=== PATIENT | female | born 1965 | race Caucasian/White ===

== ENCOUNTER 2016-07-26 07:15 | Emergency (ER) | payer OTHER ==
[2016-07-26] MEDS ORDERED: predniSONE 20 MG TAB PO ONE (07:42)
[2016-07-26] MEDS ORDERED: IPRATROPIUM/ALBUTEROL 3 ML DEYVIAL IH ONE ×2 (07:42→08:08)
[2016-07-26] MEDS ORDERED: IPRATROPIUM/ALBUTEROL 3 ML DEYVIAL ONE (07:42)
[2016-07-26] MEDS ORDERED: predniSONE 20 MG TAB ONE (07:43)
[2016-07-26] MEDS ORDERED: IBUPROFEN 600 MG TAB PO ONE (07:48)
[2016-07-26 07:56] VITALS: BP 125/102; RESP 20; TEMP 101.4
--- NOTE | 2016-07-26 08:06 | UCPHY ---
H & P Time Seen by Provider: 07/26/16 07:29 Patient Type: New HPI/ROS: This patient presents with a chief complaint cough, wheezing, subjective fever myalgias headache all of which began 2 days ago. She is a known asthmatic on inhaled steroids and has a nebulizer at home. 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 She did not receive a flu shot. REVIEW OF SYSTEMS: Constitutional: Fever, malaise, Eyes: No complaints ENT: Nasal congestion, no sore throat no ear pain Respiratory: Cough, wheezing, shortness of breath on exertion Cardiac: Chest tightness Gastrointestinal: Denies symptoms except anorexia Genitourinary: Not addressed Musculoskeletal: Generalized myalgias Skin: No rash Neurological: Headache Smoking Status: Never smoked Physical Exam: GENERAL: Well-appearing, well-nourished, this patient appears to be acutely ill but not toxic. HEAD: Atraumatic, normocephalic. EYES: Pupils equal round and reactive to light, sclera anicteric, conjunctiva are normal. ENT: TMs normal, nares patent, oropharynx clear without exudates. Moist mucous membranes. NECK: Normal range of motion, supple without lymphadenopathy or JVD. No tenderness LUNGS: There is diffuse wheezing and the patient tends to cough on expiration. The expiratory phase is prolonged. HEART: Regular rate and rhythm EXTREMITIES: Normal range of motion, NEUROLOGICAL: Cranial nerves II through XII grossly intact. Normal speech, normal gait. PSYCH: Normal mood, normal affect. SKIN: Warm, dry, normal turgor, no visible rashes or lesions. Constitutional: Initial Vital Signs Temperature (C) 38.6 C H 07/26/16 07:40 Heart Rate 128 H 07/26/16 07:40 Respiratory Rate 20 07/26/16 07:40 Blood Pressure 125/102 H 07/26/16 07:40 O2 Sat (%) 92 07/26/16 07:40 O2 Delivery Mode Room Air Allergies/Adverse Reactions: ENVIRONMENTAL Allergy (Intermediate, Uncoded 07/26/16 07:45) ASTHMA Home Medications: Medication Instructions Recorded Bimatoprost 0.01% [Lumigan 0.01% 1 drops EACHEYE HS 09/02/15 (*)] QUEtiapine FUMARATE [Seroquel 25 25 mg PO HS 09/02/15 mg (*)] Albuterol [Ventolin Hfa Inhaler] 2 puffs IH Q6 PRN 09/21/15 Oseltamivir Phosphate [Tamiflu 75 75 mg PO BID #10 cap 07/26/16 mg (RX)] Qvar 07/26/16 predniSONE 20 mg PO DAILY #12 tablet 07/26/16 Medical Decision Making ED Course/Re-evaluation: The patient was given an initial DuoNeb with 60 mg of prednisone. Re- examination revealed few or wheezes and free air air movement. At 8:15 a.m. she was given an additional DuoNeb. After the 2nd treatment she was feeling significantly improved in her oxygen. Saturations remained in good range. Re- examination revealed if your wheezes on again more air movement. - Data Points Laboratory Results: 07/26/16 07:30 Influenza Typ A,B (DFA) POSITIVE FOR FLU A H (NEGATIVE) Medications Given: Discontinued Medications Albuterol/Ipratropium (Duoneb) 3 ml IH EDNOW ONE Stop: 07/26/16 07:43 Last Admin: 07/26/16 07:50 Dose: 3 ml Albuterol/Ipratropium (Duoneb) 3 ml IH EDNOW ONE Stop: 07/26/16 08:09 Last Admin: 07/26/16 08:10 Dose: 3 ml Ibuprofen (Motrin) 600 mg PO EDNOW ONE Stop: 07/26/16 07:49 Last Admin: 07/26/16 07:58 Dose: 600 mg Prednisone (Prednisone) 60 mg PO EDNOW ONE Stop: 07/26/16 07:43 Last Admin: 07/26/16 07:58 Dose: 60 mg Departure - Departure Disposition: Home, Routine, Self-Care Clinical Impression: Influenza A Condition: Good Instructions: Influenza (ED), Oseltamivir (By mouth) Additional Instructions: Keep herself well hydrated but do not force herself to eat. Rest. Use your nebulizer or your inhaler at least 4 times daily but it is safe to use it every 2 hours if necessary. Influenza generally lasts 1 week but if your ill for longer than 9 days you should be re-evaluated. If you feel that your symptoms are worsening particularly your breathing problems you should be seen right away. Adult Pain & Fever Control: We recommend Acetaminophen (Tylenol) and Ibuprofen (Motrin, Advil) for pain and fever control. When fever is high or pain severe, both drugs can be used at the same time, but at different intervals. Please note the time differences. Your dose is: Acetaminophen [650]mg every 4 to 6 hours ibuprofen [600]mg every [6] hours with food OR naproxen Sodium (Aleve) [440]mg every 12 hours. Note: do not take Acetaminophen with Hydrocodone (Vicodin, Lortab) or Oxycodone (Percocet). These medications also contain Acetaminophen. No more than 3000 mg of Acetaminophen should be taken in 24 hours (for an adult) . The maximal dose of ibuprofen that it is safe in a 24-hour period is 2400 mg. You may take 400 mg every 4 hours, 600 mg every 6 hours or 800 mg every 8 hours safely. Referrals: Osmel Vaz MD [Primary Care Provider] - As per Instructions Prescriptions: Oseltamivir Phosphate [Tamiflu 75 mg (RX)] 75 mg PO BID #10 cap predniSONE 20 mg PO DAILY #12 tablet - PQRS PQRS Measurement: Not applicable
[2016-07-26 08:10] VITALS: PULSE 110; O2SAT 95
== END 2016-07-26 08:26 | disposition home or self-care (01) ==
LOC: CED 07:15
DX: J09.X2 Influenza due to identified novel influenza A virus with other respiratory manifestations (principal)
CPT/HCPCS: 87400-PO; G0463-PO

== ENCOUNTER 2016-07-30 13:55 | Emergency (ER) | payer OTHER ==
[2016-07-30 14:07] VITALS: BP 166/99; PULSE 93; RESP 16; TEMP 98.4; O2SAT 97
[2016-07-30] MEDS ORDERED: IPRATROPIUM/ALBUTEROL 3 ML DEYVIAL IH ONE (14:32)
[2016-07-30] MEDS ORDERED: IPRATROPIUM/ALBUTEROL 3 ML DEYVIAL ONE (14:33)
[2016-07-30] MEDS ORDERED: ALBUTEROL 3 ML DEYVIAL IH ONE (15:11)
--- NOTE | 2016-07-30 15:11 | DX ---
Chest 2 view, PA and lateral. History: Cough and difficulty breathing. Comparison: March 2014. Findings: Heart size is within normal limits. Pulmonary vascularity is normal. The lungs are clear of acute consolidation. Mild peribronchial cuffing is seen bilaterally. No evidence for pleural effusio n. Minimal degenerative change thoracic spine. Impression: Mild bronchitis. No other findings for acute cardiopulmonary abnormality.
--- NOTE | 2016-07-30 15:17 | UCPHY ---
H & P Time Seen by Provider: 07/30/16 14:58 Patient Type: Established HPI/ROS: This patient with a long history of asthma presents with ongoing dyspnea and wheezing despite using her albuterol nebs at home. She developed symptoms of cough and fevers 6 days ago. She presented to [facility] 4 days ago was diagnosed with influenza a by a positive swab at that time. She was tachycardic to the 120s not hypoxic to 92% on that visit. She clinically improved with prednisone, nebs was also started on Tamiflu. She reports compliance with prednisone 60 mg a day and Tamiflu. However, she has been using her albuterol nebs q.4 hours at home and still has persistent dyspnea that she ranks as moderate to mild. She clarifies that dyspnea is moderate prior to nebs and mild after. Compared to previous asthma exacerbations she is not clearing as quickly as usual on prednisone and that concerned her, prompting her visit. ROS: Constitutional: No high fevers in the last couple days. No chills. No other complaints. HEENT: She has no complaints pulmonary: No pleuritic pain. No chest pain. Cardiovascular: No complaints. 7 point ROS is otherwise negative. Smoking Status: Never smoked Physical Exam: Physical Exam Vital signs are normal with exception of mild hypertension General: No acute distress HEENT: Oropharynx: Clear with no stridor. No dysphonia. Eyes: Pupils equal and react to light. Extraocular motions are intact. Lungs: Patient has moderate rhonchi bilaterally and mild to moderate expiratory wheeze bilaterally after a DuoNeb that she received on arrival. No rales are appreciated. No respiratory distress. Cardiac: Regular rate and rhythm with no murmur gallop or rub Skin: No rash or pallor. Neuro: Alert and oriented x3 with no sensorimotor deficits. Initial differential diagnosis: Persistent asthma exacerbation, pneumonia Constitutional: Initial Vital Signs Temperature (C) 36.9 C 07/30/16 14:03 Heart Rate 93 07/30/16 14:03 Respiratory Rate 16 07/30/16 14:03 Blood Pressure 166/99 H 07/30/16 14:03 O2 Sat (%) 97 07/30/16 14:03 O2 Delivery Mode Room Air Allergies/Adverse Reactions: ENVIRONMENTAL Allergy (Intermediate, Uncoded 07/30/16 14:07) ASTHMA Home Medications: Medication Instructions Recorded Bimatoprost 0.01% [Lumigan 0.01% 1 drops EACHEYE HS 09/02/15 (*)] QUEtiapine FUMARATE [Seroquel 25 25 mg PO HS 09/02/15 mg (*)] Albuterol [Ventolin Hfa Inhaler] 2 puffs IH Q6 PRN 09/21/15 Oseltamivir Phosphate [Tamiflu 75 75 mg PO BID #10 cap 07/26/16 mg (RX)] Qvar 07/26/16 predniSONE 20 mg PO DAILY #12 tablet 07/26/16 Albuterol Hfa Anes Only [Proair 2 puffs IH Q4 PRN #1 mdi 07/30/16 Hfa Icu (*)] Albuterol [Proventil Neb] 3 ml IH Q4 #25 deyvial 07/30/16 Beclomethasone Qvar 80 [Qvar 80 2 puffs IH BIDI #0 mdi 07/30/16 (*)] predniSONE 60 mg PO DAILY #15 tab 07/30/16 MDM/Departure - MDM Diagnostics: Chest x-ray: Prominent bronchial findings bilaterally consistent with airway disease/bronchitis. No focal infiltrates are appreciated. No pneumothorax. Medications Given: Discontinued Medications Albuterol (Proventil Neb) 3 ml IH EDNOW ONE Stop: 07/30/16 15:12 Last Admin: 07/30/16 15:32 Dose: 3 ml Albuterol/Ipratropium (Duoneb) 3 ml IH EDNOW ONE Stop: 07/30/16 14:33 Last Admin: 07/30/16 14:35 Dose: 3 ml ED Course/Re-evaluation: DuoNeb Peak flow of 320 after the initial DuoNeb. Albuterol neb Discussion: Despite the patient's feeling of chest congestion dyspnea she actually has decent peak flow. I counseled her regarding mucolytic, humidifier to help break up the mucus as well as CPT. We will extend her prednisone course and provided further Qvar and home nebs for her. After workup, we ruled out pneumonia with the negative chest x-ray. - Depart Disposition: Home, Routine, Self-Care Clinical Impression: Asthma exacerbation Condition: Good Instructions: Asthma (ED) Additional Instructions: Dx: Asthma Exacerbation Plan: He use a humidifier Also poultry picking machine tender [id number] guaifenesin as a mucolytic Chest percussive therapy 5 minutes to the chest by a family member prior to your nebulizer to help mobilize mucus. Continue prednisone as prescribed Albuterol inhalers or puffers as needed for cough, wheeze or shortness of breath Monitor peak flow as instructed. Call your primary physician to arrange follow-up appointment for this week Good the emergency department for any significant worsening despite treatment plan. Prescriptions: Albuterol Hfa Anes Only [Proair Hfa Icu (*)] 2 puffs IH Q4 PRN #1 mdi PRN Reason: Wheezing Albuterol [Proventil Neb] 3 ml IH Q4 #25 deyvial Beclomethasone Qvar 80 [Qvar 80 (*)] 2 puffs IH BIDI #0 mdi predniSONE 60 mg PO DAILY #15 tab Referrals: Osmel Vaz MD [Primary Care Provider] - As per Instructions - PQRS PQRS Measurement: NA
== END 2016-07-30 16:01 | disposition home or self-care (01) ==
LOC: CED 13:55
DX: J45.909 Unspecified asthma, uncomplicated (principal); R05 Cough
CPT/HCPCS: 71020-PO; G0463-PO

== ENCOUNTER → 2016-08-07 | Outpatient (CLI) | payer OTHER ==
--- NOTE | 2016-08-07 09:42 | MA ---
Screening Digital Mammogram With iCAD Indication: Routine screening. Benign left breast stereotactic biopsy in May 2014. Technique: Standard cephalocaudal and mediolateral oblique projections are obtained. This examinati on is processed by the iCAD computer-aided detection system. Comparison: May 2015, May 2014, March 2013, and September 2010. Breast density: Type B. Findings: CAD was reviewed. No suspicious microcalcifications, mass, or architectural distortion. Impression: Negative mammogram BI-RADS: 1 - Negative Recommendation: Routine screening is recommended in one year. [facility] will send a result letter to the patient. Negative mammography should not preclude additional workup of a clinically suspicious finding. The patient's information is entered into a reminder system with a target due date for her next mammo gram.
== END ==
LOC: FIMAGING 07:51
DX: Z12.31 Encounter for screening mammogram for malignant neoplasm of breast (principal)
CPT/HCPCS: G0202

== ENCOUNTER → 2017-06-26 | Outpatient (CLI) | payer OTHER | LOC: CIMAGING 12:14 | PROVIDERS: ATTEND Internal Medicine | DX: J45.909 Unspecified asthma, uncomplicated (principal) | CPT/HCPCS: 71020-PO ==

== ENCOUNTER → 2017-08-20 | Outpatient (CLI) | payer OTHER | LOC: FIMAGING 12:51 | PROVIDERS: ATTEND Obstetrics & Gynecology | DX: Z12.31 Encounter for screening mammogram for malignant neoplasm of breast (principal) ==

== ENCOUNTER → 2017-08-31 | Outpatient (CLI) | payer OTHER | LOC: FIMAGING 10:26 | PROVIDERS: ATTEND Obstetrics & Gynecology | DX: R92.8 Other abnormal and inconclusive findings on diagnostic imaging of breast (principal) ==